=== PATIENT | male | born 1940 | race Caucasian/White ===

== ENCOUNTER → 2018-03-14 | Outpatient (CLI) | payer MEDICARE | LOC: LAB SHORT 07:42 → PLD 07:42 | DX: R21 Rash and other nonspecific skin eruption (principal) | CPT/HCPCS: 88312 ==

== ENCOUNTER 2020-04-09 18:01 | Inpatient (IN) | payer MEDICARE, OTHER ==
[~2020-04-09] VITALS: Ht 180.3 cm; Wt 74.0 kg
[2020-04-09] MEDS ORDERED: AZIT250 PO ×2 (18:14→21:28)
[2020-04-09] MEDS ORDERED: DIPATR PO ×2 (18:15→21:20)
[2020-04-09] MEDS ORDERED: METF500 PO (18:15)
[2020-04-09] MEDS ORDERED: FAMO20 PO (18:16)
[2020-04-09 18:39] LABS: BASOPHILS ABSOLUTE AUTO 0.02 K/mm3 (0.00-0.23); BASOPHILS PERCENT AUTO 0 % (0-2); EOSINOPHILS ABSOLUTE AUTO 0.05 K/mm3 (0.00-0.68); EOSINOPHILS PERCENT AUTO 1 % (0-6); Hematocrit 38.2 % (37.0-53.0); IMMATURE GRAN ABSOLUTE AUTO 0.02 K/mm3 (0.00-0.10); IMMATURE GRAN PERCENT AUTO 0 % (0-1); LYMPHOCYTES PERCENT AUTO 13 % (21-46); MONOCYTES PERCENT AUTO 6 % (4-13); Mean Corpuscular HGB 36.3 pg (26.0-34.0); Mean Corpuscular Volume 107 fL (80-100); Mean Platelet Volume 10.7 fL (9.1-12.4); NEUTROPHILS ABSOLUTE AUTO 5.79 K/mm3 (1.96-9.15); NEUTROPHILS PERCENT AUTO 81 % (41-73); Platelet Count 123 K/mm3 (150-400); RDW Coefficient Variation 12.2 % (11.7-14.2); RDW Standard Deviation 48.1 fL (35.1-46.3); Red Blood Cell Count 3.58 M/mm3 (4.30-5.90); White Blood Cell Count 7.18 K/mm3 (4.00-11.30)
[2020-04-09 18:58] LABS: Alanine Aminotransfer (ALT/SGP 28 U/L (12-78); Albumin, Blood 3.4 g/dL (3.4-5.0); Albumin/Globulin Ratio 1.3 (0.8-1.8); Alk Phos 54 U/L (50-136); Anion Gap 6 mmol/L (6-16); Aspartate Aminotrans (AST/SGOT 29 U/L (12-37); Bilirubin, Total 0.5 mg/dL (0.1-1.0); Blood Urea Nitrogen 22 mg/dL (8-24); Bun/Creatinine Ratio 19.3 (12.0-20.0); CO2, Blood 25 mmol/L (21-32); Calcium, Blood 8.3 mg/dL (8.5-10.1); Chloride, Blood 108 mmol/L (98-108); Creatinine, Blood 1.14 mg/dL (0.60-1.20); Globulin, Blood 2.7 g/dL (2.2-4.0); Glomerular Filtration Rate >60 (60-); Glucose, Blood 230 mg/dL (70-99); Magnesium, Blood 1.9 mg/dL (1.6-2.4); Potassium, Blood 4.4 mmol/L (3.5-5.5); Sodium, Blood 139 mmol/L (136-145); Total Protein, Blood 6.1 g/dL (6.4-8.2); Troponin I 0.076 ng/mL (0.000-0.040)
[2020-04-09] MEDS ORDERED: FLUT1DIS5 INH (21:20)
[2020-04-09] MEDS ORDERED: POLY500 PO (21:22)
[2020-04-09] MEDS ORDERED: THERA-D2000 UNIT PO (21:23)
[2020-04-09] MEDS ORDERED: DEPO-TESTO200 MG/12 IM (21:27)
--- NOTE | 2020-04-09 22:00 | NUR ---
PT ADMITTED TO ROOM ICU 15 FROM ED. IS ABLE TO ASSIST FROM GURNEY TO BED. ARRIVES AT 2037. NO COMPLAINTS OF CHEST PAIN OR PRESSURE. ALERT AND ORIENTED, PLEASANT AND COOPERATIVE WITH CARE AND ASSESSMENT. PT'S ASSISTS WITH ADMISSION. PT DEMONSTRATES HE IS A GOOD HISTORIAN. WILL REVIEW CHART AND PLAN OF CARE.
[2020-04-09 23:00] LABS: Influenza A, PCR NEGATIVE (NEGATIVE); Influenza B, PCR NEGATIVE (NEGATIVE); Resp Syncytial Virus, PCR NEGATIVE (NEGATIVE); SARS-Cov-2 (COVID-19) PCR, MMC NEGATIVE (NEGATIVE)
--- NOTE | 2020-04-10 02:00 | NUR ---
AMIODARONE CONTINUES AND IS DECREASED TO 0.5 FOR NEXT 18 HOURS. PT HAS NO RUNS OF V-TACH NOTED. NO CHEST PAIN OR PRESSURE. OCCASSIONAL PVC'S AND PAC'S. ASYMPTOMATIC WITH THIS. HAVE KEPT PT WITH ONLY WATER PENDING PROBABLE PROCEDURE IN AM.
--- NOTE | 2020-04-10 06:30 | NUR ---
PT HAS BEEN UP TO BEDSIDE COMMODE THREE TIMES THIS NIGHT. NO COMPLAINTS OF VERTIGO, CHEST PAIN OR PRESSURE. DENIES ALL COMPLAINTS. PT'S CALL THIS MORNING TO CHECK ON PT. UPDATE GIVEN. CARDIOLOGY CONSULT PHONED TO ANSWERING SERVICE. WILL CONTINUE TO MONITOR PT, AND WILL REPORT OFF TO ONCOMING RN.
--- NOTE | 2020-04-10 07:49 | NUR ---
ASSUMED CARE RECEIVED REPORT FROM MEREDITH MONTOYA. PT IS LYING IN BED AWAKE, ALERT AND ORIENTED X 4. HE IS [place], AND ONLY HAS HIS ONE HEARING AIDE (LEFT) WITH HIM IN HOSPITAL. SINUS BRADYCARDIA, WITH OCCASIONAL PVCs SEEN, RATE 50s. PT STATES HE RUNS LOW. WILL CONTINUE TO MONITOR. PT DENIES CHEST PAIN, SOB, NAUSEA, AND ANY ABDOMINAL PAIN. HE HAS 2L NC ON, WITH SPO2 98%. AMIODARONE IS INFUSING AT 0.5 MG/MIN. CALL LIGHT WITHIN REACH. BED LOW AND LOCKED. PT HAS CONSENTED TO AN ANGIOGRAM AT [address] VELÁZQUEZ AND THIS RN.
[2020-04-10 09:25] LABS: International Normalized Ratio 1.02; Prothrombin Time Results 10.9 Sec (9.7-11.5)
--- NOTE | 2020-04-10 11:54 | NUR ---
PT UPDATE... PT RETURNED TO THE ROOM AT 1150. NO INTERVENTIONS WERE DONE PER REPORT. PT HAS RIGHT RADIAL ACCESS W/TR BAND THAT WAS PLACED AT 1130 W/10NLS IN THE BAND. THERE IS A SMALL AMOUNT OF OOZING NOTED AROUND THE BAND. NO SWELLING OR HEMATOMA NOTED. PT'S VS STABLE UPON RETURN, SB AT 55, RR 16, L/S CLEAR. BP 116/57. O2 SATS 96% ON RA. PT IS A&Ox4, PLEASENT AND COOPERATIVE WITH CARE. WILL CONTINUE TO MONITOR.
--- NOTE | 2020-04-10 13:30 | NUR ---
UPDATE 1150 - PT BACK FROM ICU, RIGHT RADIAL SITE - TR BAND WITH 10 ML OF AIR. NO ACTIVE BLEEDING SEEN, SOME DRIED BLOOD AROUND SITE, PT DENIES PAIN, NUMBNESS, AND TINGLING IN RIGHT HAND. CAP REFIL < 3s, RIGHT HAND IS WARM TO TOUCH AND COLOR IS AT BASELINE FOR PT. PT DENIES CHEST PAIN, SOB, AND NAUSEA. HE IS ON ROOM AIR, VITALS ARE STABLE - MAP > 65, IS IN SINUS RHYTHM/BRADYCARDIA RATE IN THE 50s. NO HEMATOMA FORMATION. 1230 - REMOVED 2 mL OF AIR FROM TR BAND, NO BLEEDING OR ANY CHANGED NOTED 1245 - REMOVED 2 mL, -- NO CHANGES NOTED 1300 - REMOVED 1 mL, SMALL AMOUNT OF BLEEDING/LEAKING UPON INITIAL REMOVAL OF 2 mL, SO INFLATED BACK 1 mL; TOTAL 5 mL LEFT IN TR BAND. 1320 - AMIO GTTP STOPPED, PO AMIO GIVEN.
--- NOTE | 2020-04-10 19:42 | NUR ---
UPDATE NO MAJOR CHANGES SINCE PT CAME BACK FROM [employer]. CONTINUES TO DENY CHEST PAIN, SOB, AND NAUSEA. HIS RIGHT RADIAL SITE IS CDI, STRONG PULSE, NO HEMATOMA FORMATION SEEN/PALPATED, CAP REFILL < 3s; TR BAND IS OFF, OPSITE COVERING SITE AND HANDBOARD STILL IN PLACE. PT DENIES RIGHT HAND PAIN, NUMBNESS, TINGLING, AND HE CAN MOVE HIS RIGHT HAND FINE. SINUS DAGOBERTO, WITH PVCs, STABLE BP (MAP > 65). AFEBRILE. ROOM AIR, SPO2 94%. BED LOW AND LOCKED. CALL LIGHT WITHIN REACH.
--- NOTE | 2020-04-10 21:12 | NUR ---
ASSUMED PT CARE FROM MEREDITH GALVEZ AT 1915 PT SLEEPING UPON BEDSIDE REPORT. TR BAND ALREADY REMOVED FROM RIGHT RADIAL SITE. MINIMAL DRIED BLOOD NOTED UNDER TEGADERM DRESSING, WELL SLIGHT BRUISING NOTED; ARM BOARD IN PLACE. PT IS ALERT AND ORIENTED AND ABLE TO MAKE NEEDS KNOWN; UTILIZES CALL LIGHT APPROPRIATELY. STANDBY ASSIST FOR CORD MANAGEMENT WHEN PT AMBULATES TO TOILET. VSS, SEE FLOWSHEET. PT DENIES CHEST PAIN, SOB, DIZZINESS, AND/OR FEELING LIGHTHEADED. BRADYCARDIA WITH A FIRST DEGREE HB NOTED, WELL OCCASIONAL PVC'S. PT NOTED TO BE DIAPHORETIC; HOWEVER, HE IS NOT CLAMMY APPEARING, NOR COOL OR PALE. WILL CONTINUE TO MONITOR. CALL LIGHT IS WITHIN REACH.
[2020-04-11 03:34] LABS: BASOPHILS ABSOLUTE AUTO 0.03 K/mm3 (0.00-0.23); BASOPHILS PERCENT AUTO 1 % (0-2); EOSINOPHILS ABSOLUTE AUTO 0.13 K/mm3 (0.00-0.68); EOSINOPHILS PERCENT AUTO 2 % (0-6); Hematocrit 37.8 % (37.0-53.0); Hemoglobin 12.5 g/dL (13.5-17.5); IMMATURE GRAN ABSOLUTE AUTO 0.02 K/mm3 (0.00-0.10); IMMATURE GRAN PERCENT AUTO 0 % (0-1); LYMPHOCYTES ABSOLUTE AUTO 1.32 K/mm3 (0.84-5.20); LYMPHOCYTES PERCENT AUTO 22 % (21-46); MONOCYTES ABSOLUTE AUTO 0.59 K/mm3 (0.16-1.47); MONOCYTES PERCENT AUTO 10 % (4-13); Mean Corpuscular HGB 35.6 pg (26.0-34.0); Mean Corpuscular HGB Conc 33.1 g/dL (31.5-36.5); Mean Corpuscular Volume 108 fL (80-100); Mean Platelet Volume 10.6 fL (9.1-12.4); NEUTROPHILS PERCENT AUTO 66 % (41-73); Platelet Count 108 K/mm3 (150-400); RDW Coefficient Variation 12.5 % (11.7-14.2); RDW Standard Deviation 49.6 fL (35.1-46.3); Red Blood Cell Count 3.51 M/mm3 (4.30-5.90); White Blood Cell Count 6.09 K/mm3 (4.00-11.30)
[2020-04-11 03:50] LABS: Albumin, Blood 3.1 g/dL (3.4-5.0); Anion Gap 5 mmol/L (6-16); Blood Urea Nitrogen 16 mg/dL (8-24); Bun/Creatinine Ratio 13.7 (12.0-20.0); CO2, Blood 28 mmol/L (21-32); Chloride, Blood 110 mmol/L (98-108); Creatinine, Blood 1.17 mg/dL (0.60-1.20); Glomerular Filtration Rate >60 (60-); Glucose, Blood 107 mg/dL (70-99); Phosphorus, Blood 2.5 mg/dL (2.5-4.9); Potassium, Blood 4.2 mmol/L (3.5-5.5); Sodium, Blood 143 mmol/L (136-145)
--- NOTE | 2020-04-11 06:19 | NUR ---
END OF SHIFT SUMMARY PT SLEPT T/O MOST OF SHIFT WITH A COUPLE TRIPS TO THE TOILET WITH STANDBY ASSIST. PT REMAINED IN A FIRST DEGREE HEART BLOCK, BRADYCARDIC HR 50'S WITH OCCASIONAL PVC'S. RIGHT RADIAL SITE IS STABLE WITH DRIED BLOOD AND MINIMAL BRUISING THAT HAS REMAINED UNCHANGED. PT CONTINUED TO DENY CHEST PAIN, DIZZINESS, OR LIGHTHEADEDNESS THIS SHIFT. PT ABLE TO TURN AND REPOSITION SELF IN BED. VSS STABLE, SEE FLOWSHEET. WILL CONTINUE TO MONITOR UNTIL REPORT IS HANDED OFF TO ONCOMING RN.
--- NOTE | 2020-04-11 07:21 | NUR ---
ASSUMED CARE RECEIVED REPORT FROM MEREDITH BERMUDEZ. PT IS AWAKE, ALERT, AND ORIENTED X 4; RIGHT RADIAL SITE LOOKS CDI, NO SIGNS OF HEMATOMA FORMATION, PT DENIES CURRENT PAIN, NUMBNESS, AND TINGLING IN RIGHT HAND/WRIST. CAP REFILL < 3s, STRONG R RADIAL PULSE, AND SKIN COLOR IS WNL OF BASELINE. CALL LIGHT WITHIN REACH. BED LOW AND LOCK.
--- NOTE | 2020-04-11 13:08 | NUR ---
ASSUMED CARE FROM MEREDITH JACKSON, ICU PT ARRIVED TO PCU FROM ICU AT APPROXIMATELY 1245. PT HAS BEEN ADMITTED FOR EPISODE OF VTACH WHILE OUT IN THE COMMUNITY, PT WAS ON AN AMIODORONE DRIP BUT THAT HAS SINCE BEEN DC'D AND THE PT WAS STARTED ON PO MEDICATION. 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 PT STATES HE SEES A LINUX SYSTEM ADMIN IN [place] FOR THAT ISSUE. PT HAS A HEART MURMER AND IS IN SR WITH PVC'S. PT IS AWAITING A PACER PLACEMENT Monday04/13/20, ANGIO WAS COMPLETED YESTERDAY AND WAS CLEAR. SBA AND INDPENDENT IN THE ROOM. PT HAS A RIGHT RADIAL SITE FROM THE ANGIOGRAM, SCANT AMOUNT OF DRIED BLOOD REPORTED AND EVIDENT, WINDOW DRESSING IN PLACE AND ARM BOARD, PT REMINDED TO USE GENTLE MOVEMENTS AND NOT BEND THE WRIST. PT IS IN BED AT THIS TIME RESTING
--- NOTE | 2020-04-11 18:02 | NUR ---
SHIFT SUMMARY PT ARRIVED FROM ICU THIS AFTERNOON. PT HAS BEEN STABLE, ON RA AND INDEPENDENT IN THE ROOM. PT HAS HAD NO CARDIAC EVENTS DURING THIS SHIFT AND VS HAVE REMAINED STABLE AND WITHIN NORMAL LIMITS. PT IS AWAITING AN AICD PLACEMENT ON MONDAY AT THIS TIME
--- NOTE | 2020-04-12 06:40 | NUR ---
SHIFT SUMMARY PATIENT ALERT AND ORIENTED X4. HE HAD NO COMPLAINTS OF PAIN OR SHORTNESS OF BREATH. SLEPT WELL OVERNIGHT. ONLY GOT UP TO USE THE RESTROOM. WAS BRADYCARDIC OVERNIGHT, NO EPISODES OF V TACH. IV PATENT AND FLUSHED. BED IN LOWEST POSITION WITH WHEELS LOCKED. CALL LIGHT WITHIN REACH. REPORT GIVEN TO ONCOMING RN.
--- NOTE | 2020-04-12 09:49 | NUR ---
MORNING UPDATE PT HAS BEEN INDPENDENT IN THE ROOM THIS MORNING. VS STABLE, PT ON RA. PT HAD AN EKG COMPLETED THIS MORNING THAT HAD BEEN PREVIOUSLY ORDERED. PT HAS BEEN STABLE AND AWAITING HIS AICD PLACEMENT TOMORROW.
--- NOTE | 2020-04-12 19:24 | NUR ---
SHIFT SUMMARY PT HAS BEEN INDEPENDENT IN THE ROOM TODAY. VS STABLE, PT REMAINS ON RA DURING THE DAY. PT WAS ABLE TO AMBULATE TODAY WITHOUT ANY CARDIAC EVENTS. PT HAD A SHOWER WITH MINIMAL ASSISTANCE BY THE CUTTING MACHINE TENDER. PT IS AWAITING AICD PLACEMENT TOMORROW
--- NOTE | 2020-04-13 05:33 | NUR ---
SHIFT SUMMARY NO ACUTE CHANGES THIS SHIFT, NO C/O ANY KIND, SLEPT WELL T/O THE NIGHT W/O DESATS OR SUPPLEMENTAL O2, NPO SINCE MIDNIGHT FOR PROCEDURE TODAY, CALL LIGHT IN REACH, WILL CONT TO MONITOR UNTIL REPORT GIVEN TO DAY RN.
--- NOTE | 2020-04-13 12:02 | NUR ---
PT TAKEN VIA BED TO HEART CENTER.
--- NOTE | 2020-04-13 13:15 | NUR ---
PT GAVE THIS STUDENT NURSE TO PROVIDE CARE AND ACCESS CHART ON 04/13/20.
--- NOTE | 2020-04-13 15:47 | NUR ---
UPDATE: PT BACK FROM [facility] FOR AICD PLACEMENT. LEFT CHEST WALL INCISION COVERED WITH GAUZE AND TEGADERM. NO SIGNS OF BLEEDING OR HEMATOMA. PT DENIES PAIN. SLING IN PLACE. EDUCATION PROVIDED. ALERT AND ORIENTED X4. ON ROOM AIR SATING AT 94%. TELE SHOWING SINUS DAGOBERTO. VITAL SIGNS STABLE WITH SLIGHTLY ELEVATED BP, TRENDING DOWN. WILL CONTINUE TO MONITOR WITH POST PROCEDURE VITALS PER PROTOCOL. PT SITTING IN BED EATING. IN ROOM VISITING.
--- NOTE | 2020-04-13 18:18 | NUR ---
SHIFT SUMMARY: PT ALERT AND ORIENTED X4. ON ROOM AIR SATING ABOVE 92%. TELE SHOWING SINUS DAGOBERTO WITH HEART RATE AVERAGING 50-60'S. DENIES CHEST PAIN. AICD PLACED THIS AFTERNOON. L UPPER CHEST INCISION. DRESSING SLIGHTLY SATURATED, NO SIGNS OF BLEEDING OR HEMATOMA. PT STATES "SHOULDER FEELS SORE, BUT TOLERABLE" TYLENOL OFFERED, PT REFUSED. NO ACUTE CHANGES. IN TO VISIT. SLING IN PLACE ON LEFT ARM. R RADIAL SIGHT FROM PREVIOUS ANGIO. WILL CONTINUE TO MONITOR AND REPORT OFF.
--- NOTE | 2020-04-14 05:35 | NUR ---
SHIFT SUMMARY PT A&O X4. VSS. SPO2 > 92% ON 2L NC WHILE SLEEPING, RA WHILE AWAKE. MONITOR SHOWS SB, HR 50's W/ INTERMITTENT PACING. LCW PACER INSERTION SITE NOTED TO BE SWOLLEN, ICE PACK APPLIED. L ARM IN SLING T/O SHIFT. PRN TYLENOL PROVIDED X2 THIS SHIFT D/T PT REPORT OF PACER INSERTION SITE BEING "SORE." PT REPORTS IMPROVEMENT W/ PRN TYLENOL GIVEN.
[2020-04-14] MEDS ORDERED: AMIODARONE HCL400 M2 PO (12:47)
[2020-04-14] MEDS ORDERED: ASPI81CH PO (12:47)
--- NOTE | 2020-04-14 13:17 | NUR ---
DISCHARGE SUMMARY PT A&Ox4; CALM AND COOPERATIVE WITH CARE. PT UP IN ROOM IND. PT REPORTS TENDERNESS TO LEFT CHEST; LEFT CHEST WALL DRESSING C/D/I; CHANGED THIS AM BY DR MCRAE; BRUISING AND SWELLING NOTED, PT STATES IMPROVED FROM LAST NOC. PT DENIES PAIN, SOB, NAUSEA AND DIZZINESS. VSS. NO OTHER ACUTE CHANGES. WATER TREATMENT OPERATOR EDUCATED PT ON DISCHARGE INSTRUCTIONS, FOLLOW UP APPOINTMENTS AND MEDICATIONS. PRESCRIPTIONS CALLED IN TO [facility] IN [place]. PT LEFT ROOM VIA WHEELCHAIR AT 1301.
== END 2020-04-14 13:01 | disposition home or self-care (01) | DRG 225 ==
LOC: ER 18:01 → ICUW 20:02 → ER 20:02 → ICUW 20:35 → PCU 04-10 12:25 → ICUW 04-10 14:00 → PCU 04-11 12:47
PROVIDERS: Emergency Medicine; Family Medicine; Internal Medicine Cardiovascular Disease; ADMIT Internal Medicine
PROC: 0JH609Z Insertion of Cardiac Resynchronization Defibrillator Pulse Generator into Chest Subcutaneous Tissue and Fascia, Open Approach (ICD-10-PCS; principal; 2020-04-13)
PROC: 02HK3KZ Insertion of Defibrillator Lead into Right Ventricle, Percutaneous Approach (ICD-10-PCS; 2020-04-13)
PROC: 4A023N7 Measurement of Cardiac Sampling and Pressure, Left Heart, Percutaneous Approach (ICD-10-PCS; 2020-04-13)
PROC: 02H63KZ Insertion of Defibrillator Lead into Right Atrium, Percutaneous Approach (ICD-10-PCS; 2020-04-13)
PROC: B2111ZZ Fluoroscopy of Multiple Coronary Arteries using Low Osmolar Contrast (ICD-10-PCS; 2020-04-13)
DX: I47.2 Ventricular tachycardia (principal); K51.90 Ulcerative colitis, unspecified, without complications; Z90.49 Acquired absence of other specified parts of digestive tract; Z87.891 Personal history of nicotine dependence; J44.9 Chronic obstructive pulmonary disease, unspecified; E11.9 Type 2 diabetes mellitus without complications; Z79.84 Long term (current) use of oral hypoglycemic drugs; D69.6 Thrombocytopenia, unspecified; K21.9 Gastro-esophageal reflux disease without esophagitis; D64.9 Anemia, unspecified; I46.2 Cardiac arrest due to underlying cardiac condition; Z20.822 Contact with and (suspected) exposure to COVID-19
CPT/HCPCS: 0241U; 33249; 36415; 71045; 71046; 76937; 80053; 80069; 82947; 83735; 84484; 85025; 85610; 86850; 86870; 86900; 86901; 86905; 93005; 93010; 93458; 94640; 94762; 96365-59; 96366-59; 96372; 96375; 99152; 99153; 99285-25; A9270; C1721; C1769; C1781; C1882; C1894; C1895; C1898; C8923; G0378; J0690; J1644; J1650; J2250; J3010; J3475; J7030; J7040; J7050; Q9957; Q9967